=== PATIENT | female | born 1995 | race Two or more races ===

== ENCOUNTER 2020-06-25 19:28 | Inpatient (IN) | payer OTHER ==
[~2020-06-25] VITALS: Ht 165.1 cm; Wt 2.3 kg
[2020-06-26] MEDS ORDERED: PRENATAL + DHA1 EAC1 PO (08:40)
== END 2020-06-30 11:53 | disposition home or self-care (01) | DRG 786 ==
LOC: LDR 19:28 → OB/GYN 19:28
PROVIDERS: ADMIT Specialist; ATTEND Specialist
PROC: 30233N1 Transfusion of Nonautologous Red Blood Cells into Peripheral Vein, Percutaneous Approach (ICD-10-PCS; 2020-06-25)
PROC: 4A1HXFZ Monitoring of Products of Conception, Cardiac Rhythm, External Approach (ICD-10-PCS; 2020-06-25)
PROC: 10D00Z1 Extraction of Products of Conception, Low, Open Approach (ICD-10-PCS; principal; 2020-06-25 21:00)
DX: O76 Abnormality in fetal heart rate and rhythm complicating labor and delivery (principal); O45.93 Premature separation of placenta, unspecified, third trimester; O60.14X0 Preterm labor third trimester with preterm delivery third trimester, not applicable or unspecified; O99.02 Anemia complicating childbirth; D62 Acute posthemorrhagic anemia; Z3A.35 35 weeks gestation of pregnancy; Z37.0 Single live birth; Z20.822 Contact with and (suspected) exposure to COVID-19

== ENCOUNTER 2021-04-17 15:55 | Emergency (ER) | payer OTHER ==
[~2021-04-17] VITALS: Ht 165.1 cm; Wt 51.7 kg
[~2021-04-17 15:55] MED LIST: PRENATAL + DHA1 EAC1 PO
== END 2021-04-17 21:02 | disposition home or self-care (01) ==
LOC: ER 15:55
DX: R42 Dizziness and giddiness (principal)

== ENCOUNTER 2022-08-09 11:44 | Emergency (ER) | payer OTHER ==
[~2022-08-09] VITALS: Ht 165.1 cm; Wt 54.9 kg
== END 2022-08-09 15:34 | disposition home or self-care (01) ==
LOC: ER 11:44
DX: O23.41 Unspecified infection of urinary tract in pregnancy, first trimester (principal); Z3A.12 12 weeks gestation of pregnancy; N39.0 Urinary tract infection, site not specified; R42 Dizziness and giddiness

== ENCOUNTER 2022-10-21 20:00 | Outpatient (CLI) | payer OTHER ==
[2022-10-21] MEDS ORDERED: PRENATAL TABLE1 EAC1 PO (20:44)
[2022-10-21] MEDS ORDERED: IRON325 MG PO (22:45)
[2022-10-21] MEDS ORDERED: PEPCID AC20 MG PO (22:45)
[2022-10-21] MEDS ORDERED: CHILDREN'S ASPI81 MG PO (22:45)
== END 2022-10-22 07:14 | disposition home or self-care (01) ==
LOC: OBS/DEL 20:00
PROVIDERS: ATTEND Specialist
DX: O26.892 Other specified pregnancy related conditions, second trimester (principal); R10.2 Pelvic and perineal pain; Z3A.22 22 weeks gestation of pregnancy

== ENCOUNTER 2022-11-25 19:18 | Emergency (ER) | payer OTHER ==
[~2022-11-25] VITALS: Ht 165.1 cm; Wt 55.3 kg
[~2022-11-25 19:18] MED LIST changes: +CHILDREN'S ASPI81 MG PO; +IRON325 MG PO; +PEPCID AC20 MG PO; +PRENATAL TABLE1 EAC1 PO
[2022-11-25] MEDS ORDERED: PRENATAL + DHA1 EAC1 (19:35)
== END 2022-11-25 22:18 | disposition home or self-care (01) ==
LOC: ER 19:18
DX: O98.512 Other viral diseases complicating pregnancy, second trimester (principal); U07.1 COVID-19; Z3A.27 27 weeks gestation of pregnancy

== ENCOUNTER 2023-02-09 11:35 | Inpatient (IN) | payer OTHER ==
[~2023-02-09] VITALS: Ht 165.1 cm; Wt 2.3 kg
[~2023-02-09 11:35] MED LIST changes: +PRENATAL + DHA1 EAC1
[2023-02-09 11:46] LABS: HEMATOCRIT 31.1 % (36.0-45.00); HEMOGLOBIN 10.6 g/dL (12.0-15.00); MEAN CELL VOLUME 87.1 fL (80.00-100.00); MEAN CORPUSCULAR HEMOGLOBIN 29.8 pg (27.00-32.0); MEAN CORPUSCULAR HGB CONC 34.2 g/dl (32.0-36.0); PLATELET COUNT 174 K/uL (150-450); RED BLOOD COUNT 3.57 M/uL (4.00-6.00); RED CELL DISTRIBUTION WIDTH 12.9 % (11.5-14.5)
[2023-02-09 11:48] LABS: URINE APPEARANCE Cloudy; URINE BILIRRUBIN Negative (NEGATIVE); URINE BLOOD Negative; URINE COLOR Yellow; URINE GLUCOSE Negative (NEGATIVE); URINE LEUKOCYTE Small; URINE NITRATE Negative; URINE PROTEIN Negative (NEGATIVE)
[2023-02-09 11:53] LABS: URINE BACTERIA 4053.2 uL (0.0-1933); URINE EPITHELIAL CELLS 136.9 uL (0.0-38.8); URINE WBC 60.6 uL (0.0-23.2)
[2023-02-09 12:15] LABS: INR < 0.93; PARTIAL THROMBOPLASTIN TIME 26.8 SECONDS (22.0-34.0); PROTHROMBIN TIME 9.8 SECONDS (9.0-11.5)
[2023-02-09 12:22] LABS: BILIRUBIN TOTAL 0.53 mg/dL (0.3-1.2); CALCIUM 8.7 mg/dL (8.5-10.1); CREATININE SERUM 0.61 mg/dL (0.55-1.02); GFR 119.5; POTASSIUM 4.03 mEq/L (3.5-5.1)
[2023-02-09 12:30] LABS: URINE RBC 1.1 uL (0.0-20.8)
[2023-02-12 01:46] LABS: HEMOGLOBIN 9.2 g/dL (12.0-15.00); MEAN CELL VOLUME 86.6 fL (80.00-100.00); MEAN CORPUSCULAR HEMOGLOBIN 30.8 pg (27.00-32.0); MEAN CORPUSCULAR HGB CONC 35.5 g/dl (32.0-36.0); PLATELET COUNT 176 K/uL (150-450); RED CELL DISTRIBUTION WIDTH 12.9 % (11.5-14.5)
[2023-02-13] MEDS ORDERED: IBUPROFEN800 MG PO (09:21)
== END 2023-02-13 13:27 | disposition home or self-care (01) | DRG 785 ==
LOC: O/R 02-11 08:15 → OB/GYN 02-11 10:23
PROVIDERS: ADMIT Specialist; ATTEND Specialist
PROC: 0UB70ZZ Excision of Bilateral Fallopian Tubes, Open Approach (ICD-10-PCS; 2023-02-11)
PROC: 4A1HXCZ Monitoring of Products of Conception, Cardiac Rate, External Approach (ICD-10-PCS; 2023-02-11)
PROC: 10D00Z1 Extraction of Products of Conception, Low, Open Approach (ICD-10-PCS; principal; 2023-02-11 11:30)
DX: O34.211 Maternal care for low transverse scar from previous cesarean delivery (principal); Z3A.38 38 weeks gestation of pregnancy; Z37.0 Single live birth; Z20.822 Contact with and (suspected) exposure to COVID-19; Z30.2 Encounter for sterilization

== ENCOUNTER 2024-05-20 17:03 | Emergency (ER) | payer OTHER ==
[~2024-05-20] VITALS: Ht 165.1 cm; Wt 51.7 kg
[~2024-05-20 17:03] MED LIST changes: +CEFADROXIL500 MG PO; +IBUPROFEN800 MG PO
[2024-05-20] MEDS ORDERED: METOCLOPRAMIDE HCL 5 MG/ML VIAL IM STA (19:25)
[2024-05-20] MEDS ORDERED: METOCLOPRAMIDE HCL 5 MG/ML VIAL ONE (19:48)
== END 2024-05-20 20:30 | disposition home or self-care (01) ==
LOC: ER 17:05
DX: R11.2 Nausea with vomiting, unspecified (principal)